=== PATIENT | male | born 1985 | race Caucasian/White ===

== ENCOUNTER 2019-03-26 23:57 | Emergency (ER) | payer BC ==
[~2019-03-26] VITALS: Ht 172.7 cm; Wt 68.0 kg
[2019-03-27] MEDS ORDERED: FLEXERIL PO (00:38)
[2019-03-27] MEDS ORDERED: NORCO 5-325 TA1 EAC1 PO (00:38)
[2019-03-27 01:00] VITALS: BP 126/81
== END 2019-03-27 01:00 | disposition home or self-care (01) ==
LOC: M.ERS 23:57
DX: M54.5 Low back pain (principal)